=== PATIENT | female | born 1945 | race Caucasian/White ===

== ENCOUNTER 2016-10-02 20:09 | Inpatient (IN) | payer MEDICARE ==
[~2016-10-02] VITALS: Ht 157.5 cm; Wt 81.0 kg
[2016-10-02] MEDS ORDERED: humuLIN REG INSULIN ONE (22:55)
[2016-10-02] MEDS ORDERED: SODIUM CHLORIDE 0.9% 1,000 ML ONE (22:56)
[2016-10-02] MEDS ORDERED: CEFTRIAXONE 1 GM VIAL ONE (22:56)
[2016-10-02] MEDS ORDERED: SODIUM CHLORIDE 0.9% 100 ML IV ONE (22:56)
[2016-10-03] VITALS (38 sets, daily range): BP systolic 80–108; RESP 14–30; TEMP 97.2–101.6; BMI 30.9
[2016-10-03] MEDS ORDERED: SODIUM CHLORIDE 0.9% 1,000 ML ONE (00:35)
[2016-10-03] MEDS ORDERED: BISACODYL 10 MG SUPP RECTAL PRN (01:00)
[2016-10-03] MEDS ORDERED: ACETAMINOPHEN 325 MG TAB PO PRN (01:00)
[2016-10-03] MEDS ORDERED: ONDANSETRON 4 MG VIAL IV PRN (01:00)
[2016-10-03] MEDS ORDERED: BISACODYL EC 5 MG TAB PO PRN (01:00)
[2016-10-03] MEDS ORDERED: MAG HYDROX 30 ML UDC PO PRN (01:00)
[2016-10-03] MEDS ORDERED: GLUCAGON 1 MG VIAL IM PRN (01:00)
[2016-10-03] MEDS ORDERED: DEXTROSE 50% SYRINGE 50 ML IV PRN ×2 (01:00→18:45)
[2016-10-03] MEDS ORDERED: SALINE FLUSH 10 ML FLUSH PRN (01:00)
[2016-10-03] MEDS ORDERED: ALU/MAG/SIM 30 ML UDC PO PRN (01:00)
[2016-10-03] MEDS: SODIUM CHLORIDE 0.9% 1,000 ML IV SCH ×2 (01:36→08:16)
[2016-10-03] MEDS: SODIUM CHLORIDE 0.9% FLUSH BAG 500 ML IV SCH (06:00)
[2016-10-03] MEDS: SALINE FLUSH 10 ML FLUSH SCH ×2 (08:18→20:00)
[2016-10-03] MEDS ORDERED: PHARMACY TO DOSE ZOSYN IV SCH (08:40)
[2016-10-03] MEDS ORDERED: SODIUM CHLORIDE 0.9% 1,000 ML IV SCH ×2 (08:40→08:45)
[2016-10-03] MEDS ORDERED: SODIUM CHLORIDE 0.9% 500 ML IV ONE (08:40)
[2016-10-03] MEDS ORDERED: CEFTRIAXONE 1 GM in SODIUM CHLORIDE 0.9% 50 ML IV SCH (09:00)
[2016-10-03] MEDS: PIPERACIL/TAZO 2.25GM/50ML 50 ML IV SCH ×3 (09:43→23:11)
[2016-10-03] MEDS ORDERED: LACT RINGERS 1,000 ML IV ONE ×2 (13:40)
[2016-10-03] MEDS ORDERED: PHARMACY TO DOSE VANCOMYCIN IV SCH (14:20)
[2016-10-03] MEDS: LACT RINGERS 1,000 ML IV SCH (14:31)
[2016-10-03] MEDS ORDERED: VANCOMYCIN 1,500 MG in SODIUM CHLORIDE 0.9% 250 ML IV ONE (14:45)
[2016-10-03] MEDS: DUONEB INH SCH ×3 (15:40→23:24)
[2016-10-03] MEDS ORDERED: INSULIN DRIP 1 UNIT/ML 100 ML IV SCH (18:45)
[2016-10-03] MEDS: MAGNESIUM SULF 1 GM/100 ML 100 ML IV SCH ×4 (19:01→22:13)
[2016-10-03] MEDS ORDERED: NOREPINEPHRINE 16 MG in DEXTROSE 5% 234 ML IV SCH (19:20)
[2016-10-04] VITALS (30 sets, daily range): BP systolic 83–138; RESP 14–26; TEMP 97.1–99.1
[2016-10-04] MEDS: LACT RINGERS 1,000 ML IV SCH (03:25)
[2016-10-04] MEDS: SODIUM CHLORIDE 0.9% FLUSH BAG 500 ML IV SCH (05:56)
[2016-10-04] MEDS: DUONEB INH SCH ×5 (07:00→22:28)
[2016-10-04] MEDS: PIPERACIL/TAZO 2.25GM/50ML 50 ML IV SCH ×4 (07:54→23:46)
[2016-10-04] MEDS: SALINE FLUSH 10 ML FLUSH SCH ×2 (07:54→20:19)
[2016-10-04] MEDS ORDERED: DOCUSATE SOD 100 MG CAP PO PRN (09:25)
[2016-10-04] MEDS ORDERED: VANCOMYCIN 1,000 MG in SODIUM CHLORIDE 0.9% 250 ML IV ONE (10:00)
[2016-10-04] MEDS: DOCUSATE SOD 100 MG CAP PO SCH ×2 (11:04→20:20)
[2016-10-04] MEDS: SACCHA BOULARDII 250MG CAP PO SCH ×2 (12:06→20:20)
[2016-10-04] MEDS: FAMOTIDINE 10 MG TAB PO SCH (12:06)
[2016-10-04] MEDS: ALLOPURINOL 300 MG TAB PO SCH (12:06)
[2016-10-04] MEDS: SERTRALINE 100 MG TAB PO SCH (12:06)
[2016-10-04] MEDS: ASPIRIN EC 81 MG TAB PO SCH (12:06)
[2016-10-04] MEDS ORDERED: PHARMACY TO DOSE ANTIBIOTIC XX SCH (12:50)
[2016-10-04] MEDS ORDERED: MISSING DOSE XX ONE (14:40)
[2016-10-04] MEDS ORDERED: LEVEMIR INSULIN SUBQ ONE (16:05)
[2016-10-04] MEDS ORDERED: GLUCAGON 1 MG VIAL IM PRN (16:05)
[2016-10-04] MEDS ORDERED: DEXTROSE 50% SYRINGE 50 ML IV PRN (16:05)
[2016-10-04] MEDS: PREGABALIN 75 MG CAP PO SCH ×2 (16:27→20:20)
[2016-10-04] MEDS: POLYETHYLENE GLYCOL 17 GM PACKET PO SCH (20:20)
[2016-10-04] MEDS: Atorvastatin 20 MG TAB PO SCH (20:20)
[2016-10-04] MEDS: LEVEMIR INSULIN SUBQ SCH (20:21)
[2016-10-05] VITALS (14 sets, daily range): BP systolic 97–125; RESP 16–32; TEMP 96.6–97.4; Ht 157.5 cm; Wt 81.0 kg
[2016-10-05] MEDS: SODIUM CHLORIDE 0.9% FLUSH BAG 500 ML IV SCH (06:11)
[2016-10-05] MEDS: PIPERACIL/TAZO 2.25GM/50ML 50 ML IV SCH ×6 (06:12→23:32)
[2016-10-05] MEDS: DUONEB INH SCH ×5 (06:55→23:37)
[2016-10-05] MEDS: SALINE FLUSH 10 ML FLUSH SCH ×2 (07:59→20:56)
[2016-10-05] MEDS: LEVEMIR INSULIN SUBQ SCH ×2 (08:01→21:09)
[2016-10-05] MEDS: PREGABALIN 75 MG CAP PO SCH ×3 (08:01→20:57)
[2016-10-05] MEDS: DOCUSATE SOD 100 MG CAP PO SCH ×2 (08:01→20:57)
[2016-10-05] MEDS: SACCHA BOULARDII 250MG CAP PO SCH ×2 (08:01→20:57)
[2016-10-05] MEDS: ALLOPURINOL 300 MG TAB PO SCH (08:02)
[2016-10-05] MEDS: SERTRALINE 100 MG TAB PO SCH (08:02)
[2016-10-05] MEDS: FAMOTIDINE 10 MG TAB PO SCH (08:02)
[2016-10-05] MEDS: ASPIRIN EC 81 MG TAB PO SCH (08:02)
[2016-10-05] MEDS ORDERED: BISACODYL EC 5 MG TAB PO PRN (09:00)
[2016-10-05] MEDS ORDERED: SODIUM CHLORIDE 0.9% 1,000 ML IV SCH ×2 (09:00)
[2016-10-05] MEDS ORDERED: BISACODYL 10 MG SUPP RECTAL PRN (09:00)
[2016-10-05] MEDS ORDERED: SODIUM CHLORIDE 0.9% 500 ML IV SCH (09:00)
[2016-10-05] MEDS ORDERED: VANCOMYCIN 1,000 MG in SODIUM CHLORIDE 0.9% 250 ML IV SCH (15:00)
[2016-10-05] MEDS: POLYETHYLENE GLYCOL 17 GM PACKET PO SCH (20:57)
[2016-10-05] MEDS: Atorvastatin 20 MG TAB PO SCH (20:57)
[2016-10-06 03:28] VITALS: BP_SYST 120; RESP 18; TEMP 98.1
[2016-10-06] MEDS: SODIUM CHLORIDE 0.9% FLUSH BAG 500 ML IV SCH (05:29)
[2016-10-06] MEDS: PIPERACIL/TAZO 2.25GM/50ML 50 ML IV SCH ×4 (05:33→23:33)
[2016-10-06 07:08] VITALS: BP_SYST 124; RESP 18; TEMP 97.8
[2016-10-06] MEDS: DUONEB INH SCH ×5 (07:28→22:51)
[2016-10-06] MEDS: SERTRALINE 100 MG TAB PO SCH (08:31)
[2016-10-06] MEDS: ALLOPURINOL 300 MG TAB PO SCH (08:31)
[2016-10-06] MEDS: SALINE FLUSH 10 ML FLUSH SCH ×2 (08:31→20:46)
[2016-10-06] MEDS: SACCHA BOULARDII 250MG CAP PO SCH ×2 (08:31→20:44)
[2016-10-06] MEDS: DOCUSATE SOD 100 MG CAP PO SCH ×2 (08:31→20:43)
[2016-10-06] MEDS: PREGABALIN 75 MG CAP PO SCH ×3 (08:32→21:35)
[2016-10-06] MEDS: FAMOTIDINE 10 MG TAB PO SCH (08:32)
[2016-10-06] MEDS: ASPIRIN EC 81 MG TAB PO SCH (08:36)
[2016-10-06] MEDS: LEVEMIR INSULIN SUBQ SCH ×2 (08:37→20:45)
[2016-10-06 11:31] VITALS: BP_SYST 120; RESP 18; TEMP 97.8
[2016-10-06] MEDS ORDERED: Furosemide 40 MG/4 ML VIAL IV ONE (12:15)
[2016-10-06 15:35] VITALS: BP_SYST 130; RESP 18; TEMP 97.4
[2016-10-06 19:00] VITALS: BP_SYST 118; RESP 18; TEMP 97.7
[2016-10-06] MEDS: Atorvastatin 20 MG TAB PO SCH (20:44)
[2016-10-06] MEDS: POLYETHYLENE GLYCOL 17 GM PACKET PO SCH (21:35)
[2016-10-06 23:38] VITALS: BP_SYST 116; RESP 22; TEMP 96.9
[2016-10-07] VITALS (7 sets, daily range): BP systolic 104–120; RESP 16–18; TEMP 96.9–98.3
[2016-10-07] MEDS: DUONEB INH SCH ×5 (06:47→23:15)
[2016-10-07] MEDS: SODIUM CHLORIDE 0.9% FLUSH BAG 500 ML IV SCH (07:38)
[2016-10-07] MEDS: PIPERACIL/TAZO 2.25GM/50ML 50 ML IV SCH (07:38)
[2016-10-07] MEDS: ALLOPURINOL 300 MG TAB PO SCH (08:54)
[2016-10-07] MEDS: SERTRALINE 100 MG TAB PO SCH (08:54)
[2016-10-07] MEDS: PREGABALIN 75 MG CAP PO SCH ×3 (08:54→20:16)
[2016-10-07] MEDS: FAMOTIDINE 10 MG TAB PO SCH (08:54)
[2016-10-07] MEDS: ASPIRIN EC 81 MG TAB PO SCH (08:54)
[2016-10-07] MEDS: DOCUSATE SOD 100 MG CAP PO SCH ×2 (08:54→21:00)
[2016-10-07] MEDS: SACCHA BOULARDII 250MG CAP PO SCH ×2 (08:54→20:15)
[2016-10-07] MEDS: SALINE FLUSH 10 ML FLUSH SCH ×2 (08:55→20:15)
[2016-10-07] MEDS: LEVEMIR INSULIN SUBQ SCH ×2 (08:56→20:17)
[2016-10-07] MEDS: PIPERACIL/TAZO 3.375GM/50ML 50 ML IV SCH ×3 (12:30→23:43)
[2016-10-07] MEDS: Atorvastatin 20 MG TAB PO SCH (20:16)
[2016-10-07] MEDS: POLYETHYLENE GLYCOL 17 GM PACKET PO SCH (21:00)
[2016-10-08] VITALS (8 sets, daily range): BP systolic 94–122; RESP 16–20; TEMP 96.6–99.2
[2016-10-08] MEDS: SODIUM CHLORIDE 0.9% FLUSH BAG 500 ML IV SCH ×2 (05:13→05:14)
[2016-10-08] MEDS: PIPERACIL/TAZO 3.375GM/50ML 50 ML IV SCH ×4 (05:13→23:12)
[2016-10-08] MEDS: DUONEB INH SCH ×5 (07:43→22:56)
[2016-10-08] MEDS: SALINE FLUSH 10 ML FLUSH SCH ×2 (08:00→20:47)
[2016-10-08] MEDS: DOCUSATE SOD 100 MG CAP PO SCH ×2 (09:00→20:50)
[2016-10-08] MEDS: LEVEMIR INSULIN SUBQ SCH ×2 (09:19→20:49)
[2016-10-08] MEDS: ASPIRIN EC 81 MG TAB PO SCH (09:20)
[2016-10-08] MEDS: SERTRALINE 100 MG TAB PO SCH (09:20)
[2016-10-08] MEDS: SACCHA BOULARDII 250MG CAP PO SCH ×2 (09:20→20:50)
[2016-10-08] MEDS: FAMOTIDINE 10 MG TAB PO SCH (09:21)
[2016-10-08] MEDS: PREGABALIN 75 MG CAP PO SCH ×3 (09:21→20:50)
[2016-10-08] MEDS: ALLOPURINOL 300 MG TAB PO SCH (09:21)
[2016-10-08] MEDS: POLYETHYLENE GLYCOL 17 GM PACKET PO SCH (20:50)
[2016-10-08] MEDS: Atorvastatin 20 MG TAB PO SCH (20:50)
[2016-10-08] MEDS: ACETAMINOPHEN 325 MG TAB PO PRN (23:12)
[2016-10-09 03:32] VITALS: BP_SYST 104; RESP 18; TEMP 96.5
[2016-10-09] MEDS: SODIUM CHLORIDE 0.9% FLUSH BAG 500 ML IV SCH ×2 (05:32→05:33)
[2016-10-09] MEDS: PIPERACIL/TAZO 3.375GM/50ML 50 ML IV SCH ×2 (05:33→11:16)
[2016-10-09] MEDS: DUONEB INH SCH ×3 (07:33→14:39)
[2016-10-09 08:08] VITALS: BP_SYST 118; RESP 18; TEMP 98.3
[2016-10-09] MEDS: ALLOPURINOL 300 MG TAB PO SCH (08:42)
[2016-10-09] MEDS: PREGABALIN 75 MG CAP PO SCH ×2 (08:42→15:25)
[2016-10-09] MEDS: FAMOTIDINE 10 MG TAB PO SCH (08:42)
[2016-10-09] MEDS: SALINE FLUSH 10 ML FLUSH SCH (08:42)
[2016-10-09] MEDS: SACCHA BOULARDII 250MG CAP PO SCH (08:42)
[2016-10-09] MEDS: SERTRALINE 100 MG TAB PO SCH (08:42)
[2016-10-09] MEDS: ASPIRIN EC 81 MG TAB PO SCH (08:42)
[2016-10-09] MEDS: DOCUSATE SOD 100 MG CAP PO SCH ×2 (08:43→09:40)
[2016-10-09] MEDS: LEVEMIR INSULIN SUBQ SCH (08:43)
[2016-10-09] MEDS: POLYETHYLENE GLYCOL 17 GM PACKET PO SCH (09:40)
[2016-10-09] MEDS: ACETAMINOPHEN 325 MG TAB PO PRN (09:41)
[2016-10-09 11:04] VITALS: BP_SYST 110; RESP 18; TEMP 97.6
[2016-10-09 15:22] VITALS: BP_SYST 122; RESP 18; TEMP 98
[2016-10-09 16:03] VITALS: BP_SYST 122; RESP 18; TEMP 98
[2016-10-09 16:38] VITALS: BP_SYST 122; RESP 18; TEMP 98
== END 2016-10-09 17:55 | disposition home health service (06) | DRG 871 ==
LOC: ENRESERVDT → ENRESERVTM → ER 20:09 → EMR 23:10 → ENPENDDIS 23:10 → 4THW 10-03 00:08 → CCU 10-03 12:10 → 4THW 10-05 12:22
PROVIDERS: ADMIT Family Medicine Addiction Medicine; ATTEND Family Medicine Addiction Medicine
PROC: 05H633Z Insertion of Infusion Device into Left Subclavian Vein, Percutaneous Approach (ICD-10-PCS; principal; 2016-10-03)
PROC: B547ZZA Ultrasonography of Left Subclavian Vein, Guidance (ICD-10-PCS; 2016-10-03)
DX: A41.9 Sepsis, unspecified organism (principal); G92 Toxic encephalopathy; I21.4 Non-ST elevation (NSTEMI) myocardial infarction; J96.21 Acute and chronic respiratory failure with hypoxia; N17.0 Acute kidney failure with tubular necrosis; I24.8 Other forms of acute ischemic heart disease; E83.42 Hypomagnesemia; I50.22 Chronic systolic (congestive) heart failure; N39.0 Urinary tract infection, site not specified; E87.1 Hypo-osmolality and hyponatremia; I11.0 Hypertensive heart disease with heart failure; E11.65 Type 2 diabetes mellitus with hyperglycemia; E86.0 Dehydration; N13.9 Obstructive and reflux uropathy, unspecified; R53.1 Weakness; F20.9 Schizophrenia, unspecified; E78.5 Hyperlipidemia, unspecified; K21.9 Gastro-esophageal reflux disease without esophagitis; K59.00 Constipation, unspecified; M19.90 Unspecified osteoarthritis, unspecified site; Z79.82 Long term (current) use of aspirin; Z91.14 Patient's other noncompliance with medication regimen; Z79.4 Long term (current) use of insulin; E11.40 Type 2 diabetes mellitus with diabetic neuropathy, unspecified; D63.8 Anemia in other chronic diseases classified elsewhere
CPT/HCPCS: 36415; 36558; 70450; 71010; 76770; 80048; 80053; 80202; 80307; 81001; 82553; 82947; 83605; 83735; 83880; 84100; 84484; 85025; 85610; 85730; 87040; 87088; 93005; 93306; 94640; 94664; 94799; 96374; 96375; 99223; 99232; 99233; 99239; 99291